=== PATIENT | male | born 1980 | race African-American/Black ===

== ENCOUNTER 2019-08-11 12:49 | Inpatient (IN) | payer OTHER ==
[~2019-08-11] VITALS: Ht 170.2 cm; Wt 79.4 kg
[2019-08-11] MEDS ORDERED: ONDANSETRON ODT 4 MG TAB PO ONE ×2 (14:09→14:15)
[2019-08-11 14:51] LABS: Basophils # (auto) 0.1 10 ^3/uL (0-0.2); Basophils % (auto) 0.9 % (0.0-2.0); Eosinophils # (auto) 0.2 10 ^3/uL (0-0.8); Eosinophils % (auto) 1.9 % (0.0-7.0); Hematocrit 32.9 % (41.0-53.0); Hemoglobin 11.2 g/dL (13.5-17.5); Lymphocytes # (auto) 1.8 10 ^3/uL (0.4-5.4); Lymphocytes % (auto) 16.9 % (10.0-50.0); Mean Corpuscular Hemoglobin 31.6 pg (28.0-32.0); Mean Corpuscular Volume 93.1 fL (80.0-100.0); Monocytes # (auto) 0.4 10 ^3/uL (0-1.3); Neutrophils # (auto) 8.2 10 ^3/uL (1.6-8.6); Neutrophils % (auto) 76.3 % (37.0-80.0); Platelet Count (auto) 360 10^3/uL (140-450); Red Blood Cells 3.53 10^6/uL (4.5-5.90); Red Cell Distribution Width 15.4 % (11.8-14.3); White Blood Cell 10.8 10^3/uL (4.4-10.8)
[2019-08-11 15:09] LABS: Albumin 3.3 g/dL (3.4-5.0); BUN/Creatinine Ratio 6.4; Calcium 9.3 mg/dL (8.5-10.1); Potassium 3.8 mmol/L (3.5-5.1)
[2019-08-11 15:11] LABS: Bilirubin, Total 0.3 mg/dL (0.2-1.0); Total Protein 7.6 g/dL (6.4-8.2)
[2019-08-11] MEDS ORDERED: SODIUM CHLORIDE 0.9% 1,000 ML IV ONE (15:34)
[2019-08-11] MEDS ORDERED: KETOROLAC TROMETH 15 mg/ml 1ML VL IV ONE (15:45)
[2019-08-11] MEDS ORDERED: ONDANSETRON HCL 4 MG/2 ML VIAL IV ONE (16:15)
[2019-08-11 17:01] LABS: Albumin 3.6 g/dL (3.4-5.0); Anion Gap 7 (5-15); Blood Urea Nitrogen 34 mg/dL (7-18); Calcium 9.1 mg/dL (8.5-10.1); Carbon Dioxide 22 mmol/L (21-32); Chloride 112 mmol/L (98-107); Glucose 171 mg/dL (74-106); Magnesium 2.6 mg/dL (1.6-2.6); Potassium 3.8 mmol/L (3.5-5.1); Sodium 141 mmol/L (136-145)
[2019-08-11 17:07] LABS: Alanine Aminotransferase 25 U/L (16-61); Alkaline Phosphatase 149 U/L (45-117); Aspartate Aminotransferase 20 U/L (15-37); BUN/Creatinine Ratio 6.5; Bilirubin, Total 0.3 mg/dL (0.2-1.0); CRP High Sensitivity 0.16 mg/dL (< 0.3); GFR African American 16 mL/min; GFR Non-African American 13 mL/min; Total Protein 7.9 g/dL (6.4-8.2)
[2019-08-11] MEDS ORDERED: HYDROcodone-ACET 5/325MG TAB PO PRN (18:45)
[2019-08-11] MEDS ORDERED: NIFEdipine ER 30 MG TAB PO ONE (18:45)
[2019-08-11] MEDS ORDERED: DEXTROSE (50%) 50ML SYRG IV PRN (18:45)
[2019-08-11] MEDS ORDERED: SODIUM BICARBONATE 50ML VIAL 50 ML in SOD CHL 0.45% 1,000 ML IV ONE (18:45)
[2019-08-11] MEDS ORDERED: LABETALOL HCL 5 MG/ML 4ML SYRINGE IV PRN (18:45)
[2019-08-11] MEDS ORDERED: NITROGLYCERIN 0.4 MG SL TAB SL PRN (18:45)
[2019-08-11] MEDS ORDERED: MEPERIDINE HCL (25 MG/ML) 1ML VIAL IV ONE (18:45)
[2019-08-11] MEDS ORDERED: PROMETHAZINE HCL 25 MG/ML 1ML IV PRN (18:45)
[2019-08-11] MEDS ORDERED: MORPHINE SULF INJ 2 MG/ML SYRINGE 1ML IV PRN ×2 (18:45)
[2019-08-11 19:04] LABS: Phosphorus 2.1 mg/dL (2.5-4.90); Uric Acid 6.1 mg/dL (3.5-7.2)
[2019-08-11 20:00] VITALS: BP 165/88
[2019-08-11] MEDS ORDERED: ACCU-CHEK COMFORT CURVE STRIP VI SCH (22:00)
[2019-08-11] MEDS ORDERED: hydrALAZINE HCL 25 MG TAB PO SCH (22:00)
[2019-08-11] MEDS ORDERED: InsuLIN REG 1unit/0.01ml Soln (100units/ml) SC SCH (22:00)
== END 2019-08-11 20:16 | disposition left against medical advice (07) | DRG 683 ==
LOC: ER 12:49 → TELE 12:50
PROVIDERS: ADMIT Nurse Practitioner Acute Care; ATTEND Nurse Practitioner Acute Care
DX: N17.9 Acute kidney failure, unspecified (principal); I16.9 Hypertensive crisis, unspecified; I12.9 Hypertensive chronic kidney disease with stage 1 through stage 4 chronic kidney disease, or unspecified chronic kidney disease; E11.22 Type 2 diabetes mellitus with diabetic chronic kidney disease; D64.9 Anemia, unspecified; Z53.29 Procedure and treatment not carried out because of patient's decision for other reasons; N18.9 Chronic kidney disease, unspecified; Z79.4 Long term (current) use of insulin; Z90.49 Acquired absence of other specified parts of digestive tract; Z79.899 Other long term (current) drug therapy
CPT/HCPCS: 36415; 71045; 76775; 80053; 82150; 82962; 83036; 83690; 83735; 84100; 84484; 84550; 85025; 86141; 87040; 93005; G0378; J2405; Q0162

== ENCOUNTER 2019-08-13 14:25 | Inpatient (IN) | payer OTHER ==
[~2019-08-13] VITALS: Ht 170.2 cm; Wt 78.9 kg
[2019-08-13] MEDS ORDERED: SODIUM CHLORIDE 0.9% 1,000 ML IVB ONE (14:50)
[2019-08-13] MEDS ORDERED: PANTOPRAZOLE 40 MG/10 ML VIAL INJ IV STA (14:50)
[2019-08-13] MEDS ORDERED: MORPHINE SULFATE 4 MG/ML SYR/VIAL IV ONE (15:00)
[2019-08-13] MEDS ORDERED: PROCHLORPERAZINE EDISYLATE 5 MG/ML 2ML VIAL IV ONE (15:00)
[2019-08-13 15:14] LABS: Basophils # (auto) 0 10 ^3/uL (0-0.2); Basophils % (auto) 0.3 % (0.0-2.0); Eosinophils # (auto) 0 10 ^3/uL (0-0.8); Eosinophils % (auto) 0.1 % (0.0-7.0); Hematocrit 34.8 % (41.0-53.0); Hemoglobin 11.8 g/dL (13.5-17.5); Lymphocytes # (auto) 1.5 10 ^3/uL (0.4-5.4); Mean Corpuscular Hemoglobin 31.1 pg (28.0-32.0); Mean Corpuscular Volume 91.5 fL (80.0-100.0); Monocytes % (auto) 5.8 % (0.0-12.0); Neutrophils % (auto) 84.8 % (37.0-80.0); Platelet Count (auto) 375 10^3/uL (140-450); Red Cell Distribution Width 14.9 % (11.8-14.3); White Blood Cell 16.5 10^3/uL (4.4-10.8)
[2019-08-13 15:28] LABS: Albumin 3.5 g/dL (3.4-5.0); Potassium 3.4 mmol/L (3.5-5.1)
[2019-08-13 15:32] LABS: BUN/Creatinine Ratio 5.7; Bilirubin, Total 0.5 mg/dL (0.2-1.0); Total Protein 7.6 g/dL (6.4-8.2)
[2019-08-13] MEDS ORDERED: DEXTROSE (50%) 50ML SYRG IV PRN (17:00)
[2019-08-13] MEDS ORDERED: PROMETHAZINE HCL 25 MG/ML 1ML IV PRN (17:00)
[2019-08-13] MEDS ORDERED: ACETAMINOPHEN 500 MG TAB PO PRN (17:00)
[2019-08-13] MEDS ORDERED: TEMAZEPAM 15 MG CAP PO PRN (17:00)
[2019-08-13] MEDS ORDERED: LABETALOL HCL 5 MG/ML 4ML SYRINGE IV ONE (17:00)
[2019-08-13] MEDS ORDERED: NITROGLYCERIN 0.4 MG SL TAB SL PRN (17:00)
[2019-08-13] MEDS ORDERED: MORPHINE SULF INJ 2 MG/ML SYRINGE 1ML IV PRN ×2 (17:00)
[2019-08-13 17:29] LABS: CRP High Sensitivity 0.04 mg/dL (< 0.3)
[2019-08-13] MEDS ORDERED: InsuLIN REG 1unit/0.01ml Soln (100units/ml) SC SCH (18:00)
[2019-08-13] MEDS ORDERED: ACCU-CHEK COMFORT CURVE STRIP VI SCH (18:00)
[2019-08-13 19:00] VITALS: BP 162/91
[2019-08-13] MEDS ORDERED: LABETALOL HCL 200 MG TAB PO SCH (19:00)
[2019-08-13] MEDS ORDERED: FAMOTIDINE 20 MG TAB PO SCH (22:00)
[2019-08-13] MEDS ORDERED: hydrALAZINE HCL 25 MG TAB PO SCH (22:00)
== END 2019-08-13 20:01 | disposition left against medical advice (07) | DRG 392 ==
LOC: ER 14:25 → TELE 14:26
PROVIDERS: ADMIT Internal Medicine; ATTEND Internal Medicine
DX: K20.9 Esophagitis, unspecified (principal); I13.0 Hypertensive heart and chronic kidney disease with heart failure and stage 1 through stage 4 chronic kidney disease, or unspecified chronic kidney disease; I16.0 Hypertensive urgency; D63.8 Anemia in other chronic diseases classified elsewhere; E11.22 Type 2 diabetes mellitus with diabetic chronic kidney disease; E78.5 Hyperlipidemia, unspecified; F17.210 Nicotine dependence, cigarettes, uncomplicated; I50.9 Heart failure, unspecified; Z53.29 Procedure and treatment not carried out because of patient's decision for other reasons; K52.9 Noninfective gastroenteritis and colitis, unspecified; N18.9 Chronic kidney disease, unspecified; N20.0 Calculus of kidney; Z91.19 Patient's noncompliance with other medical treatment and regimen
CPT/HCPCS: 36415; 74176; 80053; 82150; 82962; 83036; 83690; 85025; 85652; 86141; C9113; G0378

== ENCOUNTER 2019-08-15 10:35 | Inpatient (IN) | payer OTHER ==
[~2019-08-15] VITALS: Ht 170.2 cm; Wt 83.4 kg
[2019-08-15] MEDS ORDERED: cloNIDine HCL 0.1 MG TAB PO ONE (11:45)
[2019-08-15 11:46] LABS: Urine Bacteria FEW /hpf (None Seen); Urine Blood 2+ /uL (Negative); Urine WBC 2 /hpf (0 - 3)
[2019-08-15] MEDS ORDERED: SODIUM CHLORIDE 0.9% 500 ML IVB ONE (11:50)
[2019-08-15] MEDS ORDERED: SODIUM CHLORIDE 0.9% 1,000 ML IV ONE (11:50)
[2019-08-15] MEDS ORDERED: PANTOPRAZOLE 40 MG TAB PO ONE ×2 (12:00→17:00)
[2019-08-15] MEDS ORDERED: PROCHLORPERAZINE EDISYLATE 5 MG/ML 2ML VIAL IV ONE (12:00)
[2019-08-15 12:16] LABS: Basophils # (auto) 0.1 10 ^3/uL (0-0.2); Basophils % (auto) 0.5 % (0.0-2.0); Eosinophils # (auto) 0.2 10 ^3/uL (0-0.8); Eosinophils % (auto) 1.2 % (0.0-7.0); Hematocrit 33.7 % (41.0-53.0); Hemoglobin 11.7 g/dL (13.5-17.5); Lymphocytes # (auto) 1.6 10 ^3/uL (0.4-5.4); Lymphocytes % (auto) 11.5 % (10.0-50.0); Mean Corpuscular Hemoglobin 31.8 pg (28.0-32.0); Mean Corpuscular Hgb Conc. 34.8 g/dL (32.0-36.0); Mean Corpuscular Volume 91.5 fL (80.0-100.0); Monocytes # (auto) 1.2 10 ^3/uL (0-1.3); Monocytes % (auto) 8.2 % (0.0-12.0); Neutrophils # (auto) 11.1 10 ^3/uL (1.6-8.6); Neutrophils % (auto) 78.6 % (37.0-80.0); Platelet Count (auto) 298 10^3/uL (140-450); Red Blood Cells 3.68 10^6/uL (4.5-5.90); Red Cell Distribution Width 14.8 % (11.8-14.3); White Blood Cell 14.1 10^3/uL (4.4-10.8)
[2019-08-15 12:34] LABS: Albumin 3.4 g/dL (3.4-5.0); Calcium 8.2 mg/dL (8.5-10.1)
[2019-08-15 12:35] LABS: Magnesium 2.3 mg/dL (1.6-2.6)
[2019-08-15 12:39] LABS: BUN/Creatinine Ratio 6.3; Bilirubin, Total 0.5 mg/dL (0.2-1.0); Total Protein 6.8 g/dL (6.4-8.2)
[2019-08-15 12:43] LABS: Potassium 2.9 mmol/L (3.5-5.1)
[2019-08-15] MEDS ORDERED: hydrALAZINE HCL 20 MG/ML VL IV ONE (13:15)
[2019-08-15] MEDS ORDERED: POTASSIUM EFFERVESENT TAB 25 MEQ PO ONE ×2 (13:15→16:45)
[2019-08-15] MEDS ORDERED: FAMOTIDINE (10MG/ML) 2ML VL IV SCH (16:45)
[2019-08-15] MEDS ORDERED: TEMAZEPAM 15 MG CAP PO PRN (16:45)
[2019-08-15] MEDS ORDERED: amLODIPine BESYLATE 5 MG TAB PO ONE (16:45)
[2019-08-15] MEDS ORDERED: METOPROLOL TARTRATE 25 MG TAB PO ONE (16:45)
[2019-08-15] MEDS ORDERED: traMADol HCL 50 MG TAB PO PRN (16:45)
[2019-08-15] MEDS ORDERED: LORazepam 2MG/ML-1ML VIAL IV ONE (16:45)
[2019-08-15] MEDS ORDERED: ENALAPRIL MALEATE 2.5 MG TAB PO ONE (16:45)
[2019-08-15] MEDS ORDERED: DEXTROSE (50%) 50ML SYRG IV PRN (16:45)
[2019-08-15] MEDS ORDERED: LORazepam 0.5 MG TAB PO PRN (16:45)
[2019-08-15] MEDS ORDERED: LABETALOL HCL 5 MG/ML 4ML SYRINGE IV PRN (16:45)
[2019-08-15] MEDS ORDERED: MORPHINE SULF INJ 2 MG/ML SYRINGE 1ML IV PRN (16:45)
[2019-08-15] MEDS ORDERED: ONDANSETRON HCL 4 MG/2 ML VIAL IV PRN (16:45)
[2019-08-15] MEDS ORDERED: NITROGLYCERIN 0.4 MG SL TAB SL PRN (16:45)
[2019-08-15] MEDS: ACCU-CHEK COMFORT CURVE STRIP VI SCH ×2 (17:31→22:22)
[2019-08-15] MEDS: InsuLIN REG 1unit/0.01ml Soln (100units/ml) SC SCH ×2 (17:48→22:00)
[2019-08-15] MEDS: ENALAPRILAT 1.25 MG/ML-1ML VIAL IV SCH (19:11)
[2019-08-15] MEDS: METOPROLOL TARTRATE 25 MG TAB PO SCH (22:21)
[2019-08-15] MEDS: ATORVASTATIN 20 MG TAB PO SCH (22:21)
[2019-08-15] MEDS: PANTOPRAZOLE 40 MG TAB PO SCH (22:22)
[2019-08-15 23:25] LABS: Alcohol, Urine < 3.0 mg/dL (0-5); Amphetamine Screen, Urine NEGATIVE (NEGATIVE); Barbiturate Scree,Urine NEGATIVE (NEGATIVE); Benzodiazephine Screen, Urine NEGATIVE (NEGATIVE); Cannabinoid Screen, Urine POSITIVE (NEGATIVE); Cocaine Screen, Urine NEGATIVE (NEGATIVE); Phencyclidine Screen, Urine NEGATIVE (NEGATIVE)
[2019-08-15 23:34] LABS: Opiate Scree,Urine NEGATIVE (NEGATIVE)
[2019-08-16] MEDS: ENALAPRILAT 1.25 MG/ML-1ML VIAL IV SCH ×4 (00:21→17:32)
[2019-08-16] MEDS: LABETALOL HCL 5 MG/ML 4ML SYRINGE IV PRN ×2 (01:48→06:13)
[2019-08-16] MEDS ORDERED: OMEG100078 PO (03:45)
[2019-08-16] MEDS ORDERED: AMLO10TA13 PO (03:45)
[2019-08-16] MEDS ORDERED: FURO40TA4 PO (03:46)
[2019-08-16] MEDS ORDERED: GABA300C10 PO (04:12)
[2019-08-16] MEDS ORDERED: [UNRECOGNIZED DRUG - CODE] EX (04:13)
[2019-08-16] MEDS ORDERED: INSLANTI SC (04:14)
[2019-08-16] MEDS ORDERED: LOSA-69 PO (04:15)
[2019-08-16] MEDS ORDERED: OMEP20TA PO (04:16)
[2019-08-16] MEDS ORDERED: MIRT1TAB38 PO (04:16)
[2019-08-16] MEDS ORDERED: B-COTAB94 PO (04:17)
[2019-08-16] MEDS ORDERED: SERT-274 PO (04:17)
[2019-08-16] MEDS ORDERED: VARE1TAB PO (04:18)
[2019-08-16] MEDS ORDERED: UREA1CRE TOP (04:18)
[2019-08-16 05:46] LABS: Basophils # (auto) 0.1 10 ^3/uL (0-0.2); Basophils % (auto) 0.4 % (0.0-2.0); Eosinophils # (auto) 0.3 10 ^3/uL (0-0.8); Eosinophils % (auto) 2.5 % (0.0-7.0); Hematocrit 31.1 % (41.0-53.0); Hemoglobin 10.8 g/dL (13.5-17.5); Lymphocytes # (auto) 2.3 10 ^3/uL (0.4-5.4); Lymphocytes % (auto) 17.2 % (10.0-50.0); Mean Corpuscular Hemoglobin 31.8 pg (28.0-32.0); Mean Corpuscular Hgb Conc. 34.7 g/dL (32.0-36.0); Mean Corpuscular Volume 91.7 fL (80.0-100.0); Monocytes # (auto) 1.1 10 ^3/uL (0-1.3); Monocytes % (auto) 8.2 % (0.0-12.0); Neutrophils # (auto) 9.7 10 ^3/uL (1.6-8.6); Neutrophils % (auto) 71.7 % (37.0-80.0); Platelet Count (auto) 272 10^3/uL (140-450); Red Blood Cells 3.39 10^6/uL (4.5-5.90); Red Cell Distribution Width 14.7 % (11.8-14.3); White Blood Cell 13.5 10^3/uL (4.4-10.8)
[2019-08-16 06:06] LABS: Albumin 2.7 g/dL (3.4-5.0); BUN/Creatinine Ratio 6.9; Calcium 7.9 mg/dL (8.5-10.1); Potassium 3.2 mmol/L (3.5-5.1)
[2019-08-16 06:09] LABS: Bilirubin, Total 0.4 mg/dL (0.2-1.0); Total Protein 5.8 g/dL (6.4-8.2)
[2019-08-16] MEDS: InsuLIN REG 1unit/0.01ml Soln (100units/ml) SC SCH ×4 (07:00→21:15)
[2019-08-16] MEDS: ACCU-CHEK COMFORT CURVE STRIP VI SCH ×4 (07:03→21:15)
[2019-08-16 08:00] VITALS: BP 191/107
[2019-08-16 08:09] VITALS: BP 191/107
[2019-08-16] MEDS: ACETAMINOPHEN 500 MG TAB PO PRN ×2 (08:29→21:10)
[2019-08-16] MEDS ORDERED: LABETALOL HCL 5 MG/ML ML 20ML VIAL IV PRN (08:30)
[2019-08-16] MEDS: LABETALOL HCL 5 MG/ML ML 20ML VIAL IV PRN (08:43)
[2019-08-16] MEDS: PANTOPRAZOLE 40 MG TAB PO SCH ×2 (09:48→21:09)
[2019-08-16] MEDS: ASPirin 81 mg TAB PO SCH (09:48)
[2019-08-16] MEDS: METOPROLOL TARTRATE 25 MG TAB PO SCH ×2 (09:49→21:11)
[2019-08-16] MEDS: NITROGLYCERIN 0.2MG/HR TOPICAL PATCH TD SCH (09:52)
[2019-08-16] MEDS ORDERED: ENALAPRIL MALEATE 10 MG TAB PO SCH (10:00)
[2019-08-16] MEDS ORDERED: amLODIPine BESYLATE 5 MG TAB PO SCH (10:00)
[2019-08-16 12:00] VITALS: BP 148/86
[2019-08-16] MEDS ORDERED: POTASSIUM CHL 20 Meq TABLET PO ONE (12:00)
[2019-08-16] MEDS ORDERED: SERTRALINE HCL 50 MG TAB PO ONE (12:15)
[2019-08-16 17:00] VITALS: BP 167/92
[2019-08-16] MEDS: ATORVASTATIN 20 MG TAB PO SCH (21:09)
[2019-08-16 22:00] VITALS: BP 146/85
[2019-08-17] MEDS: ENALAPRILAT 1.25 MG/ML-1ML VIAL IV SCH ×4 (00:06→17:58)
[2019-08-17 05:30] VITALS: BP 176/94
[2019-08-17 06:04] LABS: Basophils # (auto) 0.1 10 ^3/uL (0-0.2); Basophils % (auto) 0.6 % (0.0-2.0); Eosinophils # (auto) 0.4 10 ^3/uL (0-0.8); Eosinophils % (auto) 3.5 % (0.0-7.0); Hemoglobin 10.1 g/dL (13.5-17.5); Lymphocytes # (auto) 2.7 10 ^3/uL (0.4-5.4); Lymphocytes % (auto) 25.8 % (10.0-50.0); Mean Corpuscular Hgb Conc. 34.8 g/dL (32.0-36.0); Mean Corpuscular Volume 92.1 fL (80.0-100.0); Monocytes # (auto) 0.9 10 ^3/uL (0-1.3); Monocytes % (auto) 8.3 % (0.0-12.0); Neutrophils # (auto) 6.4 10 ^3/uL (1.6-8.6); Neutrophils % (auto) 61.8 % (37.0-80.0); Platelet Count (auto) 267 10^3/uL (140-450); Red Blood Cells 3.15 10^6/uL (4.5-5.90); White Blood Cell 10.4 10^3/uL (4.4-10.8)
[2019-08-17 06:26] LABS: Calcium 8.2 mg/dL (8.5-10.1); Potassium 3.8 mmol/L (3.5-5.1)
[2019-08-17 06:32] LABS: BUN/Creatinine Ratio 6.3; Bilirubin, Total 0.5 mg/dL (0.2-1.0); Total Protein 6.2 g/dL (6.4-8.2)
[2019-08-17] MEDS: InsuLIN REG 1unit/0.01ml Soln (100units/ml) SC SCH ×4 (06:37→22:14)
[2019-08-17] MEDS: ACCU-CHEK COMFORT CURVE STRIP VI SCH ×4 (06:37→22:14)
[2019-08-17 09:00] VITALS: BP 182/95
[2019-08-17] MEDS: LABETALOL HCL 5 MG/ML ML 20ML VIAL IV PRN (09:26)
[2019-08-17 09:52] LABS: Hepatitis A Ab IgM Negative; Hepatitis B Core IgM Negative; Hepatitis B Surface Antigen Negative (Negative)
[2019-08-17 09:53] LABS: Hepatitis C Antibody Negative (Negative)
[2019-08-17] MEDS: NITROGLYCERIN 0.2MG/HR TOPICAL PATCH TD SCH (10:00)
[2019-08-17] MEDS: ENALAPRIL MALEATE 10 MG TAB PO SCH ×2 (10:00→10:15)
[2019-08-17] MEDS: METOPROLOL TARTRATE 25 MG TAB PO SCH ×3 (10:00→21:54)
[2019-08-17] MEDS: amLODIPine BESYLATE 5 MG TAB PO SCH ×2 (10:00→10:16)
[2019-08-17] MEDS: PANTOPRAZOLE 40 MG TAB PO SCH ×2 (10:14→21:54)
[2019-08-17] MEDS: ASPirin 81 mg TAB PO SCH (10:14)
[2019-08-17] MEDS: SERTRALINE HCL 50 MG TAB PO SCH (10:15)
[2019-08-17 13:00] VITALS: BP 158/90
[2019-08-17] MEDS: hydrALAZINE HCL 25 MG TAB PO SCH ×2 (14:00→21:54)
[2019-08-17 17:00] VITALS: BP 190/86
[2019-08-17] MEDS: SUCRALFATE 1 GM/10 ML ORAL SUSP PO SCH ×2 (17:52→21:53)
[2019-08-17] MEDS: FAMOTIDINE (10MG/ML) 2ML VL IV SCH (21:53)
[2019-08-17] MEDS: ATORVASTATIN 20 MG TAB PO SCH (21:54)
[2019-08-17 22:10] VITALS: BP 166/102
[2019-08-18] MEDS: ENALAPRILAT 1.25 MG/ML-1ML VIAL IV SCH ×2 (00:14→06:33)
[2019-08-18] MEDS: InsuLIN REG 1unit/0.01ml Soln (100units/ml) SC SCH ×2 (05:16→11:25)
[2019-08-18 05:51] VITALS: BP 169/100
[2019-08-18] MEDS: SUCRALFATE 1 GM/10 ML ORAL SUSP PO SCH ×2 (05:59→11:25)
[2019-08-18] MEDS: hydrALAZINE HCL 25 MG TAB PO SCH ×2 (06:00→14:19)
[2019-08-18 06:32] LABS: Basophils # (auto) 0.1 10 ^3/uL (0-0.2); Basophils % (auto) 0.7 % (0.0-2.0); Eosinophils # (auto) 0.4 10 ^3/uL (0-0.8); Eosinophils % (auto) 4.2 % (0.0-7.0); Hematocrit 27.6 % (41.0-53.0); Hemoglobin 9.7 g/dL (13.5-17.5); Lymphocytes # (auto) 2.7 10 ^3/uL (0.4-5.4); Lymphocytes % (auto) 26.5 % (10.0-50.0); Mean Corpuscular Hemoglobin 32.4 pg (28.0-32.0); Mean Corpuscular Volume 92.6 fL (80.0-100.0); Monocytes # (auto) 0.9 10 ^3/uL (0-1.3); Monocytes % (auto) 8.9 % (0.0-12.0); Neutrophils # (auto) 6.1 10 ^3/uL (1.6-8.6); Neutrophils % (auto) 59.7 % (37.0-80.0); Platelet Count (auto) 237 10^3/uL (140-450); Red Blood Cells 2.98 10^6/uL (4.5-5.90); Red Cell Distribution Width 15.1 % (11.8-14.3); White Blood Cell 10.1 10^3/uL (4.4-10.8)
[2019-08-18] MEDS: ACCU-CHEK COMFORT CURVE STRIP VI SCH ×2 (06:34→11:25)
[2019-08-18 06:52] LABS: Potassium 3.4 mmol/L (3.5-5.1)
[2019-08-18 06:58] LABS: BUN/Creatinine Ratio 7.2; Calcium 8.2 mg/dL (8.5-10.1)
[2019-08-18 09:00] VITALS: BP 178/85
[2019-08-18] MEDS: METOPROLOL TARTRATE 25 MG TAB PO SCH (09:35)
[2019-08-18] MEDS: amLODIPine BESYLATE 5 MG TAB PO SCH (09:35)
[2019-08-18] MEDS: FAMOTIDINE (10MG/ML) 2ML VL IV SCH (09:36)
[2019-08-18] MEDS: SERTRALINE HCL 50 MG TAB PO SCH (09:36)
[2019-08-18] MEDS: ASPirin 81 mg TAB PO SCH (09:36)
[2019-08-18] MEDS: PANTOPRAZOLE 40 MG TAB PO SCH (09:36)
[2019-08-18] MEDS: NITROGLYCERIN 0.2MG/HR TOPICAL PATCH TD SCH (09:42)
[2019-08-18] MEDS ORDERED: NIFEdipine ER 30 MG TAB PO ONE (10:45)
[2019-08-18] MEDS ORDERED: FUROSEMIDE 40 MG TAB PO ONE (10:45)
[2019-08-18 14:18] VITALS: BP 132/85
[2019-08-19] MEDS ORDERED: FUROSEMIDE 40 MG TAB PO SCH (10:00)
[2019-08-19] MEDS ORDERED: NIFEdipine ER 30 MG TAB PO SCH (10:00)
== END 2019-08-18 16:30 | disposition left against medical advice (07) | DRG 280 ==
LOC: ER 10:35 → TELE 10:36 → TELE-CENTR 08-16 08:09
PROVIDERS: ADMIT Internal Medicine; ATTEND Family Medicine
DX: I21.A1 Myocardial infarction type 2 (principal); N18.6 End stage renal disease; E87.1 Hypo-osmolality and hyponatremia; I13.2 Hypertensive heart and chronic kidney disease with heart failure and with stage 5 chronic kidney disease, or end stage renal disease; E11.65 Type 2 diabetes mellitus with hyperglycemia; E87.6 Hypokalemia; I16.0 Hypertensive urgency; D72.829 Elevated white blood cell count, unspecified; D63.8 Anemia in other chronic diseases classified elsewhere; E66.3 Overweight; K20.9 Esophagitis, unspecified; I25.10 Atherosclerotic heart disease of native coronary artery without angina pectoris; E11.22 Type 2 diabetes mellitus with diabetic chronic kidney disease; E78.5 Hyperlipidemia, unspecified; F17.210 Nicotine dependence, cigarettes, uncomplicated; I50.9 Heart failure, unspecified; F41.9 Anxiety disorder, unspecified; E78.00 Pure hypercholesterolemia, unspecified; Z53.29 Procedure and treatment not carried out because of patient's decision for other reasons; Z82.49 Family history of ischemic heart disease and other diseases of the circulatory system; Z82.5 Family history of asthma and other chronic lower respiratory diseases; Z83.3 Family history of diabetes mellitus; Z87.442 Personal history of urinary calculi; Z91.19 Patient's noncompliance with other medical treatment and regimen; Z90.49 Acquired absence of other specified parts of digestive tract; F12.10 Cannabis abuse, uncomplicated; Z79.4 Long term (current) use of insulin; Z91.14 Patient's other noncompliance with medication regimen; Z59.0 Homelessness
CPT/HCPCS: 36415; 71046; 80048; 80053; 80074; 80307; 81001; 82550; 82962; 83690; 83735; 83880; 84100; 84443; 84484; 85025; 93005; 93306; 93975; 96361; 96374; G0378; J1815; J2405; J3490